=== PATIENT | female | born 1975 | race Caucasian/White ===

== ENCOUNTER 2024-06-05 07:14 | Day surgery (SDC) | payer MEDICAID ==
[~2024-06-05] VITALS: Ht 162.6 cm; Wt 90.7 kg
[2024-06-05 08:35] LABS: HCG,QUAL RESULT NEGATIVE (NEGATIVE)
[2024-06-05] MEDS ORDERED: fentaNYL CITRATE/PF 100 MCG/2 ML AMP ONE (09:25)
[2024-06-05] MEDS ORDERED: DIPHENHYDRAMINE INJ 50 MG/ML VIAL ONE (09:25)
[2024-06-05] MEDS ORDERED: MIDAZOLAM HCL 5 MG/5 ML VIAL ONE (09:26)
[2024-06-05] MEDS: MIDAZOLAM HCL 5 MG/5 ML VIAL IVP ONE (09:49)
[2024-06-05 11:37] VITALS: BP_SYST 112; PULSE 82; RESP 16; TEMP 98; O2SAT 96
[2024-06-05] MEDS ORDERED: LIDOCAINE 2%, 20 ML MDV ONE (12:00)
== END 2024-06-05 10:40 | disposition home or self-care (01) ==
LOC: SDS 07:14 → SMU 07:15 → SDS 10:40
PROVIDERS: ATTEND Internal Medicine
DX: M51.16 Intervertebral disc disorders with radiculopathy, lumbar region (principal); I10 Essential (primary) hypertension; K21.9 Gastro-esophageal reflux disease without esophagitis; F32.A Depression, unspecified; M79.7 Fibromyalgia; Z88.2 Allergy status to sulfonamides; Z90.49 Acquired absence of other specified parts of digestive tract; Z87.891 Personal history of nicotine dependence; Z86.69 Personal history of other diseases of the nervous system and sense organs
CPT/HCPCS: 62323; 84703; J2250; J3010; Q9967; J1010; 76000; J1030; J1200; J2001